=== PATIENT | female | born 1970 | race Caucasian/White ===

== ENCOUNTER 2017-03-30 12:02 | Emergency (ER) | payer BC ==
[~2017-03-30] VITALS: Ht 162.6 cm; Wt 59.0 kg
[2017-03-30 12:02] VITALS: BP_SYST 110
[~2017-03-30 12:02] MED LIST: MONT10TA22 PO
[2017-03-30] MEDS ORDERED: EPINEPHrine 1 MG/ML AMP IM ONE (12:30)
[2017-03-30 13:13] LABS: BASOPHILS % (AUTO) 0.4 % (0.0-2.0); EOSINOPHILS # (AUTO) 0.8 K/uL (0.0-0.4); EOSINOPHILS % (AUTO) 7.5 % (0.0-4.0); HEMATOCRIT 43.7 % (36-48); HEMOGLOBIN 14.2 g/dL (12.0-16.0); LYMPHOCYTES # (AUTO) 2.4 K/uL (1.0-5.5); LYMPHOCYTES % (AUTO) 24.4 % (20.5-51.5); MEAN CORPUSCULAR HEMOGLOBIN 29 pg (27-31); MEAN CORPUSCULAR HGB CONC 33 % (32-36); MEAN CORPUSCULAR VOLUME 90 fL (79.0-98.0); MONOCYTES # (AUTO) 0.8 K/uL (0.0-1.0); NEUTROPHILS % (AUTO) 59.7 % (40.0-70.0); PLATELET COUNT (AUTO) 347 K/uL (130-430); RED BLOOD CELL COUNT(AUTO) 4.86 MIL/uL (4.2-6.2); RED CELL DISTRIBUTION WIDTH 13.2 % (9.0-15.0)
[2017-03-30 13:21] LABS: CALCIUM 9.1 mg/dL (8.4-11.0); CREATININE 0.55 mg/dL (0.55-1.30); POTASSIUM 3.8 mmol/L (3.5-5.1)
[2017-03-30 13:24] LABS: PROTHROMBIN TIME 10.2 SECS (9.5-12.5)
[2017-03-30 13:27] LABS: ALBUMIN 3.7 g/dL (3.4-4.8); TOTAL BILIRUBIN 0.4 mg/dL (0.0-1.0)
[2017-03-30 13:51] VITALS: BP_SYST 115
== END 2017-03-30 13:51 | disposition home or self-care (01) ==
LOC: SED 12:02
DX: T78.40XA Allergy, unspecified, initial encounter (principal); H53.8 Other visual disturbances; L53.9 Erythematous condition, unspecified; L29.9 Pruritus, unspecified; Z88.1 Allergy status to other antibiotic agents; X58.XXXA Exposure to other specified factors, initial encounter
CPT/HCPCS: 36415; 80053; 85025; 85610; 85730; 96372; 99284; J0171